=== PATIENT | male | born 1945 ===

== ENCOUNTER 2024-05-28 07:25 | Outpatient (CLI) | payer OTHER | END 2024-05-28 07:27 | disposition home or self-care (01) | LOC: TOM 07:25 | PROVIDERS: ATTEND Internal Medicine Hematology & Oncology | DX: C61 Malignant neoplasm of prostate (principal); Z80.42 Family history of malignant neoplasm of prostate; D51.3 Other dietary vitamin B12 deficiency anemia; D72.818 Other decreased white blood cell count; G47.33 Obstructive sleep apnea (adult) (pediatric); I10 Essential (primary) hypertension; R31.21 Asymptomatic microscopic hematuria | CPT/HCPCS: 71270; 74178; Q9965 ==

== ENCOUNTER → 2024-06-17 07:11 | Outpatient (CLI) | payer OTHER ==
[2024-06-17 07:56] LABS: HEMATOCRIT 43.5 % (39.0-48.0); HEMOGLOBIN 14.5 g/dL (13-16.00); MEAN CELL VOLUME 82.2 fL (80.0-100.00); MEAN CORPUSCULAR HEMOGLOBIN 27.5 pg (27.00-32.0); MEAN CORPUSCULAR HGB CONC 33.5 g/dl (32.0-36.0); PLATELET COUNT 153 K/uL (150-450); RED BLOOD COUNT 5.29 M/uL (4.00-6.00); RED CELL DISTRIBUTION WIDTH 15.5 % (11.5-14.5)
[2024-06-17 09:04] LABS: ALBUMIN 3.8 gm/dL (3.4-5.0); ALKALINE PHOSPHATASE 63 U/L (50-136); ALT/SGPT 24 U/L (12-78); ANION GAP 6 (10.0-20.0); AST/SGOT 20 U/L (15-37); BLOOD UREA NITROGEN 18 mg/dL (7-18); BUN CREA RATIO 19 (7.0-25.0); CALCIUM 9.4 mg/dL (8.5-10.1); CARBON DIOXIDE 33 mEq/L (21-32); CHLORIDE 107 mmol/L (98-107); CREATININE SERUM 0.97 mg/dL (0.70-1.30); FERRITIN 65.7 NG/ML (26-388); GFR 74.85; GLOBULINA 3.7 G/DL (2.4-3.5); GLUCOSE FASTING 92 mg/dL (65-100); LDH 136 U/L (87-241); OSMOLALITY SERUM 285 MOSM/KG (275-295); POTASSIUM 4.49 mEq/L (3.5-5.1); SODIUM 142 mmol/L (136-145); TOTAL IRON BINDING CAPACITY 335 ug/dl (250-450); TOTAL PROTEIN 7.5 gm/dL (6.4-8.2)
[2024-06-17 09:05] LABS: PROSTATIC SPECIFIC ANTIGEN < 0.010 NG/ML (0.010-4.00)
[2024-06-17 11:28] LABS: FOLIC ACID 14.16 ng/ml (4.78-20); VITAMIN D3 25 HYDROXY 33.66 ng/ml (30-120)
[2024-06-18 09:00] LABS: MANUAL PLATELET COUNT 192
[2024-06-18 09:02] LABS: PLATELET ESTIMATE NORMAL (NORMAL)
[2024-06-18 09:07] LABS: ANTI THYROID PEROXIDASE 11 IU/mL (0-34); TRANSFERIN 267 mg/dL (177-329)
== END | disposition home or self-care (01) ==
LOC: LAB 07:11
PROVIDERS: ATTEND Internal Medicine Hematology & Oncology
DX: D50.8 Other iron deficiency anemias (principal); R79.9 Abnormal finding of blood chemistry, unspecified; I10 Essential (primary) hypertension; R74.02 Elevation of levels of lactic acid dehydrogenase [LDH]; K76.89 Other specified diseases of liver; E55.9 Vitamin D deficiency, unspecified; Z13.29 Encounter for screening for other suspected endocrine disorder; D51.1 Vitamin B12 deficiency anemia due to selective vitamin B12 malabsorption with proteinuria; D51.0 Vitamin B12 deficiency anemia due to intrinsic factor deficiency; E03.8 Other specified hypothyroidism; E06.3 Autoimmune thyroiditis; R97.0 Elevated carcinoembryonic antigen [CEA]; R97.8 Other abnormal tumor markers; R97.20 Elevated prostate specific antigen [PSA]; Z80.42 Family history of malignant neoplasm of prostate; C61 Malignant neoplasm of prostate; D51.3 Other dietary vitamin B12 deficiency anemia; D72.818 Other decreased white blood cell count; G47.33 Obstructive sleep apnea (adult) (pediatric); R31.21 Asymptomatic microscopic hematuria